=== PATIENT | female | born 1995 | race Caucasian/White ===

== ENCOUNTER 2017-10-27 11:13 | Emergency (ER) | payer OTHER ==
[~2017-10-27] VITALS: Ht 154.9 cm; Wt 59.1 kg
[~2017-10-27 11:13] MED LIST: BCPILLS PO; DIPH25CA65 PO; FEXO1TAB49 PO
[2017-10-27 11:18] VITALS: TEMP 36.8; Ht 154.9 cm; Wt 59.1 kg
[2017-10-27] MEDS ORDERED: EPP3/2 IM (11:34)
[2017-10-27 12:05] VITALS: BP 115/76; PULSE 75; O2SAT 98
--- NOTE | 2017-10-27 15:50 | EMERGENCY ROOM VISIT NOTE ---
ED Visit Note First contact with patient: 11:19 Chief Complaint: Dizziness and ear pressure. History of Present Illness: Ms. Wilks is a 22-year-old white female who ambulates into the ED complaining of feeling unbalanced and ear pressure. Historically patient reports she had a concussion 2 weeks ago. She was seen by [facility] and was cleared for normal activities. Since that time she has been feeling well. Patient reports last night she started developing bilateral ear pressure and felt that she was off balance. This lasted a few hours and self resolved and returned this morning. She is expressing concerns about her previous concussion and if these symptoms are related. Currently as previously noted she is complaining of bilateral pressure sensations in the ears. She does not rate his discomfort. She has not identified any aggravating or alleviating factors related to the pain. Since her symptoms started the ear pressure has been intermittent and waxed and waned in intensity. She has not taken any medications for this discomfort prior to arrival at the hospital. Associated with her pressure, once again as previously noted, she feels like she slightly off balance and she has been having nasal congestion and mild drainage. Additionally patient reported that she contacted and research nurse practitioner in her home town of [place] who has evaluated her for sinus issues and he recommended that she may need an brain MRI and to come to the ED for further evaluation. She denies any recent additional trauma, headache, asia dizziness, lightheadedness, visual changes, hearing changes, difficulty speaking, difficulty swallowing, tinnitus, ear drainage, sore throat, voice changes, neck pain, cough, wheezing, shortness of breath, nausea, vomiting, extremity weakness /numbness/tingling. Review of Systems: As noted above in history of present illness. All body systems were reviewed and found to be negative as noted above. Past Medical History: As noted above. Current Medications: control, Patience, Benadryl, EpiPen. Allergies to Medications: Patient denies. Social History: Patient is currently University student; she feels safe in her home environment; she admits to tobacco use and denies alcohol use. Physical Examination: Vital Signs: Date Time Temp Pulse Resp B/P (MAP) Pulse Ox O2 Delivery O2 Flow Rate FiO2 10/27/17 12:05 75 16 115/76 98 10/27/17 11:18 36.8 98 18 119/87 99 Room Air GENERAL: 22-year-old female in mild distress due to symptoms, nontoxic-appearing , afebrile and hemodynamically stable. NEUROLOGICAL: Awake, alert and oriented to person, place and time. Answering questions appropriately and following commands. Normal gait. Romberg test negative. Pronator drift test negative. Good hand eye coordination. Normal rapid alternating movements of the hands and fingers. Normal heel winkler test. Good short-term and long-term recall. Able to spell backwards. No focal motor or sensory deficits. SKIN: Warm, dry and pink. No soft tissue eruptions or trauma noted. HEENT: Atraumatic and normocephalic. No erythema or tenderness over the frontal or maxillary sinuses. External ears are nontender. Auditory canals are pink and patent. Tympanic membranes are pearly roy with normal light reflex; no bulging, erythema or fluid observed behind the membrane. PERRLA. EOMI without nystagmus. Sclera white and conjunctiva pink. No drainage from naris, but mild audible congestion was noted. Oral cavity moist and pink. Pharynx is nonerythematous or edematous. Speech normal. No lymphadenopathy. No jugular venous distention. BACK: No tenderness over the bony cervical and thoracic spine. No CVA tenderness. THORAX: Lungs sounds are clear to auscultation and equal bilaterally with symmetrical chest wall. No wheezing, rales or rhonchi. No crepitus, tenderness , subcutaneous air or deformities noted. EXTREMITIES: Moves all extremities well on command and with purpose. All distal neurovascular statuses are intact and equal bilaterally. No calf tenderness or cords. 5/5 muscle strength in all movements of the upper and lower extremities. ED Course: Patient is assessed as noted above. Patient's medication list was reviewed. I did have a lengthy conversation with the patient concerning her symptoms and the possible causes of her symptoms. At which time she became slightly anxious and tearful reporting that "a lot of things been going on" at school including a lot of exams. She reports she is feeling stressed. I did inform her I did not think an brain MRI would be useful test at this time. I indicated to her that the symptoms were mild and does not appear to be related to her recent concussion. Patient was educated about today's findings and instructed on her treatment plan ; she verbalized understanding and agreement with this plan. Clinical Impression: Bilateral ear pressure. Sensations of feeling unbalanced. Decision-Making: Initially my differential diagnosis I considered intracranial bleed, return of concussive symptoms, bilateral otitis interna, stress/anxiety, and other causes. Disposition: Patient discharged home in stable condition; prior to departure she was reassessed and subjectively reported she was feeling the same. Plan: Patient was encouraged to continue her current medications. Patient was encouraged to keep use a possible OTC decongestant for her ear fullness sensations. Patient was encouraged to use precaution but to do all her normal daily activities slowing purposeful over the next few days including walking to class and studying. Patient was encouraged to avoid alcohol use over the next few days as these may exacerbate her symptoms. Patient is encouraged to increase clear fluids for the next few days. Patient is encouraged to follow-up at [facility] for recheck if no better in 2-3 days. Patient was encouraged return to the ED for worsening symptoms, headache, vomiting, personality changes, difficulty to arouse from sleep, difficulty doing her normal daily activities, any new abnormal neurological symptoms or any new/concerning symptoms.
== END 2017-10-27 12:06 | disposition home or self-care (01) ==
LOC: C.EDB 11:17 → C.EDA 12:06
DX: H93.8X3 Other specified disorders of ear, bilateral (principal); R42 Dizziness and giddiness; F17.200 Nicotine dependence, unspecified, uncomplicated